=== PATIENT | male | born 1995 | race Caucasian/White ===

== ENCOUNTER 2021-05-06 10:39 | Emergency (ER) | payer SELFPAY ==
[2021-05-06 13:00] LABS: CORONAVIRUS 2019 SARS-COV-2 NEGATIVE (NEGATIVE); INFLUENZA A NAA NEGATIVE (NEGATIVE)
== END 2021-05-06 15:34 | disposition left against medical advice (07) ==
LOC: FER 10:39
PROVIDERS: Internal Medicine
DX: Z53.8 Procedure and treatment not carried out for other reasons (principal)
CPT/HCPCS: U0002